=== PATIENT | female | born 1945 | race Caucasian/White ===

== ENCOUNTER 2018-11-19 10:00 | Day surgery (SDC) | payer MEDICARE, BC ==
[~2018-11-19 10:00] MED LIST: Lactated Ringers 1,000 ML IV SCH; Sodium Chloride 0.9% 10 ML Syringe FLUSH PRN
[2018-11-19] MEDS ORDERED: Lidocaine 2% 5 ML SDV ONE (11:37)
[2018-11-19] MEDS ORDERED: fentaNYL 100 MCG/2 ML SDV ONE (11:37)
[2018-11-19] MEDS ORDERED: Midazolam 1 MG/ML 2 ML SDV ONE (11:37)
[2018-11-19] MEDS ORDERED: Propofol 200 MG/20 ML SDV ONE (11:37)
--- NOTE | 2018-11-19 12:47 | PCM.PN ---
- General Info Date of Service: 11/19/18 - Review of Systems Systems Review Comment:: 73 y/o female referred for EGD because of post prandial epigastric pain. Some improvement with Zantac and Carafate. Her recent history and physical is reviewed and no significant changes are noted. I discussed the proposed upper endoscopy with the patient. She agrees to proceed accepting risks. Results of recent colonoscopy also reviewed with patient. - Patient Data Vitals - Most Recent: Last Vital Signs Temp 97.3 F 11/19/18 10:13 Pulse 81 11/19/18 10:13 Resp 16 11/19/18 10:13 BP 140/63 11/19/18 10:13 Pulse Ox 99 11/19/18 10:13 Weight - Most Recent: 60.872 kg Med Orders - Current: Current Medications Lactated Ringer's (Ringers, Lactated) 1,000 mls @ 50 mls/hr IV ASDIRECTED [facility] Last Admin: 11/19/18 10:43 Dose: 50 mls/hr Sodium Chloride (Saline Flush) 10 ml FLUSH Q8HR PRN PRN Reason: keep vein open Last Admin: 11/19/18 10:44 Dose: 10 ml Discontinued Medications Fentanyl (Sublimaze) Confirm Administered Dose 100 mcg .ROUTE .STK-MED ONE Stop: 11/19/18 11:38 Lactated Ringer's (Ringers, Lactated) 1,000 mls @ 50 mls/hr IV ASDIRECTED [facility] Lidocaine (Xylocaine-Mpf 2%) Confirm Administered Dose 5 ml .ROUTE .STK-MED ONE Stop: 11/19/18 11:38 Midazolam HCl (Versed 1 Mg/Ml) Confirm Administered Dose 2 mg .ROUTE .STK-MED ONE Stop: 11/19/18 11:38 Propofol (Diprivan 20 Ml) Confirm Administered Dose 200 mg .ROUTE .STK-MED ONE Stop: 11/19/18 11:38 - Problem List Review Problem List Initiated/Reviewed/Updated: Yes - My Orders Last 24 Hours: My Active Orders 11/19/18 09:00 Sodium Chloride 0.9% [Saline Flush] 10 ml FLUSH Q8HR PRN 11/19/18 10:00 Vital Signs [RC] PER UNIT ROUTINE Lactated Ringers [Ringers, Lactated] 1,000 ml IV ASDIRECTED Peripheral IV Insertion Adult [OM.PC] Routine 11/19/18 10:30 Patient to Empty Bladder [RC] ASDIRECTED 11/19/18 11:00 Verify Patient Consent Obtain [RC] ASDIRECTED 11/19/18 Breakfast Nothing Per Oral Diet [DIET] - Assessment Assessment:: Postprandial epigastric pain - Plan Plan:: EGD
[2018-11-19] MEDS ORDERED: Lidocaine 2% 100 MG/5 ML Syringe IVPUSH ONE (12:58)
[2018-11-19] MEDS ORDERED: fentaNYL 100 MCG/2 ML SDV IV ONE (12:58)
[2018-11-19] MEDS ORDERED: Midazolam 1 MG/ML 2 ML SDV IV ONE (12:58)
[2018-11-19] MEDS ORDERED: Propofol 200 MG/20 ML SDV IV ONE (12:58)
--- NOTE | 2018-11-19 13:36 | PCM.OPNOTE ---
- General Post-Op/Procedure Note Date of Surgery/Procedure: 11/19/18 Operative Procedure(s): EGD with Biopsy Findings: Normal appearing upper endoscopy except for appearance of scar in lower stomach Pre Op Diagnosis: Epigastric pain Post-Op Diagnosis: Normal upper endoscopy Anesthesia Technique: MAC Primary Surgeon: Lenny Alcazar Pathology: Biopsies of Gastric Antrum and Duodenum EBL in mLs: 3 Complications: None Condition: Good
[2018-11-19 14:16] VITALS: BP 130/59
--- NOTE | 2018-11-19 19:11 | OR ---
DATE OF SURGERY: 11/19/2018 SURGEON: Lenny Alcazar MD REFERRING PROVIDER: SHELBY Neal PREOPERATIVE DIAGNOSIS: Postprandial epigastric pain. POSTOPERATIVE DIAGNOSIS: Normal upper endoscopy. OPERATION PERFORMED: Esophagogastroduodenoscopy with biopsy. INDICATIONS FOR SURGERY: This 73-year-old female has a history of pain in the epigastrium which develops after eating. Etiology for this is unclear, and she is referred for diagnostic upper endoscopy. FINDINGS: No visible signs of inflammation or ulcers are seen on today's exam. The exam appears normal with the exception of the appearance of a scar in the lower part of the stomach. This does not show any indication of inflammation and it is not firm or abnormal. DESCRIPTION OF PROCEDURE: The patient was taken to the operating room, she was given intravenous sedation and her throat was topically anesthetized. The esophagus was intubated with the Olympus gastroscope, this was carefully advanced down through the esophagus, stomach, and into the duodenum where examination to the 2nd portion was performed. Because of the patient's symptoms, biopsies of the duodenum were taken. The scope was withdrawn back into the stomach where full examination including retroflexed examination of the fundus was performed. Biopsies of the antrum including biopsies in the area where the mucosa appeared to show some scarring, was carried out to rule out H. pylori. After full examination of the stomach was performed, the GE junction was carefully examined, and then the esophagus was re-examined as the scope was removed. The patient was then taken from the operating room in satisfactory condition. ESTIMATED BLOOD LOSS: 3 mL. COMPLICATIONS: None. PROGNOSIS: Good. /[id number]/MODL
== END 2018-11-19 14:55 | disposition home or self-care (01) ==
LOC: KA.SDS 10:00
PROVIDERS: ATTEND Surgery
DX: K29.50 Unspecified chronic gastritis without bleeding (principal); I10 Essential (primary) hypertension; F41.9 Anxiety disorder, unspecified; Z79.82 Long term (current) use of aspirin; J30.9 Allergic rhinitis, unspecified; Z79.899 Other long term (current) drug therapy; Z88.5 Allergy status to narcotic agent; Z88.2 Allergy status to sulfonamides
CPT/HCPCS: 00731; J2001; J2250; J2704; J3010; J7120

== ENCOUNTER 2020-12-28 07:58 | Day surgery (SDC) | payer MEDICARE, BC ==
[2020-12-28] MEDS ORDERED: Ondansetron 4 MG/2 ML SDV IV ONE (07:59)
[2020-12-28] MEDS ORDERED: Sodium Chloride 0.9% 10 ML Syringe FLUSH PRN (08:00)
[2020-12-28] MEDS: Lactated Ringers 1,000 ML IV SCH (08:41)
[2020-12-28] MEDS ORDERED: Glycopyrrolate 0.2 MG/ML SDV ONE (09:02)
[2020-12-28] MEDS ORDERED: Propofol 200 MG/20 ML SDV ONE (09:02)
[2020-12-28] MEDS ORDERED: Midazolam 1 MG/ML 2 ML SDV ONE (09:02)
[2020-12-28] MEDS ORDERED: Lidocaine 2% 5 ML SDV ONE (09:02)
--- NOTE | 2020-12-28 09:14 | PCM.PN ---
- General Info Date of Service: 12/28/20 - Review of Systems Systems Review Comment:: 75-year-old female with recent symptoms of nausea and epigastric pain along with changes in her bowel pattern referred for EGD. She is medically stable to proceed today. Her recent history and physical is reviewed and no significant changes are noted. I have discussed the proposed EGD with the patient. She agrees to proceed accepting risks. - Patient Data Vitals - Most Recent: Last Vital Signs Temp 97.5 F 12/28/20 08:10 Pulse 82 12/28/20 08:10 Resp 16 12/28/20 08:10 BP 142/71 H 12/28/20 08:10 Pulse Ox 95 12/28/20 08:10 Weight - Most Recent: 60.328 kg Med Orders - Current: Current Medications Lactated Ringer's (Ringers, Lactated) 1,000 mls @ 50 mls/hr IV ASDIRECTED [facility] Last Admin: 12/28/20 08:41 Dose: 50 mls/hr Documented by: Sodium Chloride (Saline Flush) 10 ml FLUSH Q8HR PRN PRN Reason: keep vein open Discontinued Medications Glycopyrrolate (Robinul) Confirm Administered Dose 0.2 mg .ROUTE .STK-MED ONE Stop: 12/28/20 09:03 Lidocaine (Xylocaine-Mpf 2%) Confirm Administered Dose 10 ml .ROUTE .STK-MED ONE Stop: 12/28/20 09:03 Midazolam HCl (Versed 1 Mg/Ml) Confirm Administered Dose 2 mg .ROUTE .STK-MED ONE Stop: 12/28/20 09:03 Propofol (Diprivan 20 Ml) Confirm Administered Dose 200 mg .ROUTE .STK-MED ONE Stop: 12/28/20 09:03 Sepsis Event Note - Focused Exam Vital Signs: Vital Signs Temp Pulse Resp BP Pulse Ox 12/28/20 08:10 97.5 F 82 16 142/71 H 95 - Problem List Review Problem List Initiated/Reviewed/Updated: Yes - My Orders Last 24 Hours: My Active Orders 12/28/20 07:11 Resuscitation Status Routine 12/28/20 08:00 Peripheral IV Care [RC] . DIRECTED Nothing Per Oral Diet [DIET] Lactated Ringers [Ringers, Lactated] 1,000 ml IV ASDIRECTED Sodium Chloride 0.9% [Saline Flush] 10 ml FLUSH Q8HR PRN Peripheral IV Insertion Adult [OM.PC] Routine 12/28/20 08:30 Patient to Empty Bladder [RC] ASDIRECTED 12/28/20 09:00 Verify Patient Consent Obtain [RC] ASDIRECTED - Assessment Assessment:: Abdominal pain Nausea - Plan Plan:: EGD
--- NOTE | 2020-12-28 09:47 | PCM.OPNOTE ---
- General Post-Op/Procedure Note Date of Surgery/Procedure: 12/28/20 Operative Procedure(s): EGD with biopsy Findings: Normal-appearing esophagus and duodenum Linear scar in greater curvature but without visible inflammation or ulcers Pre Op Diagnosis: Nausea. Upper Abdominal Pain Post-Op Diagnosis: Gastric Wall Scar Anesthesia Technique: MAC Primary Surgeon: Lenny Alcazar Pathology: Biopsies of Duodenum and Stomach EBL in mLs: 3 Complications: None Condition: Good
--- NOTE | 2020-12-28 10:43 | OR ---
DATE OF SURGERY: 12/28/2020 SURGEON: Lenny Alcazar MD PREOPERATIVE DIAGNOSIS: Nausea and upper abdominal pain. POSTOPERATIVE DIAGNOSIS: Gastric scar. OPERATION PERFORMED: Esophagogastroduodenoscopy with biopsy. INDICATIONS FOR SURGERY: This 75-year-old female has been having symptoms of nausea and upper abdominal pain as well as periods of profound constipation. She is referred for upper endoscopy. FINDINGS: No visible signs of acute inflammation or ulcers are seen. There is noted on the greater curvature near the posterior aspect of the gastric wall. A longitudinally oriented linear scar. The remainder of the gastric mucosa, duodenum, and esophagus all appeared normal. PROCEDURE: The patient was taken to the operating room. She was given intravenous sedation and with her in the left lateral decubitus position, the Olympus gastroscope was advanced through the mouth guard into the oral cavity. The scope was then carefully advanced through the oropharynx down through the esophagus, stomach, and into the duodenum where examination to the 4th portion is performed. Full examination of the duodenum was carried out with no abnormalities seen. Random biopsies of the duodenum were taken because of the patient's symptoms. The scope was withdrawn back into the stomach where full examination including retroflexed examination of the fundus was performed. Biopsies of the antrum and gastric body are taken randomly to rule out H pylori. Also targeted biopsies of the greater curvature where the scar is seen are also taken and submitted separately. After fully examining the stomach, the GE junction and esophagus are re-examined as the scope is withdrawn. The scope was removed and the patient was taken from the operating room in satisfactory condition. ESTIMATED BLOOD LOSS: 3 mL. COMPLICATIONS: None. PROGNOSIS: Good. /[id number]/MODL
[2020-12-28 12:18] VITALS: BP 137/59; PULSE 70
== END 2020-12-28 11:18 | disposition home or self-care (01) ==
LOC: KA.SDS 07:58
PROVIDERS: ATTEND Surgery
DX: K29.50 Unspecified chronic gastritis without bleeding (principal); K59.00 Constipation, unspecified; K31.89 Other diseases of stomach and duodenum; Z88.8 Allergy status to other drugs, medicaments and biological substances; Z88.5 Allergy status to narcotic agent; Z88.2 Allergy status to sulfonamides; Z79.82 Long term (current) use of aspirin; Z79.899 Other long term (current) drug therapy
CPT/HCPCS: 00731; 88305; 88342; J2250; J2405; J2704; J3490; J7120

== ENCOUNTER 2021-01-11 07:57 | Day surgery (SDC) | payer MEDICARE, BC ==
[2021-01-11] MEDS ORDERED: Sodium Chloride 0.9% 10 ML Syringe FLUSH PRN (08:00)
[2021-01-11] MEDS ORDERED: Lactated Ringers 1,000 ML IV SCH (08:00)
[2021-01-11] MEDS ORDERED: Midazolam 1 MG/ML 2 ML SDV ONE (09:02)
[2021-01-11] MEDS ORDERED: Propofol 200 MG/20 ML SDV ONE (09:02)
--- NOTE | 2021-01-11 09:11 | PCM.PN ---
- General Info Date of Service: 01/11/21 - Review of Systems Systems Review Comment:: 75-year-old female with change in bowel pattern over the last 6 months with increasing constipation here for colonoscopy. She is medically stable to proceed today. Her recent history and physical is reviewed and no significant changes are noted. Her last colonoscopy was about 3 years ago. I have discussed the proposed colonoscopy with the patient. She agrees to proceed accepting risks. - Patient Data Vitals - Most Recent: Last Vital Signs Temp 97.3 F 01/11/21 08:10 Pulse 79 01/11/21 08:10 Resp 16 01/11/21 08:10 BP 143/66 H 01/11/21 08:10 Pulse Ox 98 01/11/21 08:10 Weight - Most Recent: 58.513 kg Med Orders - Current: Current Medications Lactated Ringer's (Ringers, Lactated) 1,000 mls @ 50 mls/hr IV ASDIRECTED [facility] Last Admin: 01/11/21 08:23 Dose: 50 mls/hr Documented by: Sodium Chloride (Sodium Chloride 0.9% 10 Ml Syringe) 10 ml FLUSH Q8HR PRN PRN Reason: keep vein open Discontinued Medications Midazolam HCl (Midazolam 1 Mg/Ml 2 Ml Sdv) Confirm Administered Dose 2 mg .ROUTE .STK-MED ONE Stop: 01/11/21 09:03 Propofol (Propofol 200 Mg/20 Ml Sdv) Confirm Administered Dose 400 mg .ROUTE .STK-MED ONE Stop: 01/11/21 09:03 Sepsis Event Note - Focused Exam Vital Signs: Vital Signs Temp Pulse Resp BP Pulse Ox 01/11/21 08:10 97.3 F 79 16 143/66 H 98 - Problem List Review Problem List Initiated/Reviewed/Updated: Yes - My Orders Last 24 Hours: My Active Orders 01/10/21 13:34 Resuscitation Status Routine 01/11/21 08:00 Peripheral IV Care [RC] . DIRECTED Nothing Per Oral Diet [DIET] Lactated Ringers [Ringers, Lactated] 1,000 ml IV ASDIRECTED Sodium Chloride 0.9% [Saline Flush] 10 ml FLUSH Q8HR PRN Peripheral IV Insertion Adult [OM.PC] Routine 01/11/21 08:30 Patient to Empty Bladder [RC] ASDIRECTED 01/11/21 09:00 Verify Patient Consent Obtain [RC] ASDIRECTED - Assessment Assessment:: Change in bowel pattern - Plan Plan:: Colonoscopy
--- NOTE | 2021-01-11 09:39 | PCM.OPNOTE ---
- General Post-Op/Procedure Note Date of Surgery/Procedure: 01/11/21 Operative Procedure(s): Colonoscopy Findings: Moderate sigmoid diverticulosis without inflammation or stricture Pre Op Diagnosis: Change in bowel habits Post-Op Diagnosis: Sigmoid diverticulosis Anesthesia Technique: MAC Primary Surgeon: Lenny Alcazar Pathology: none EBL in mLs: 0 Complications: None Condition: Good
[2021-01-11 10:23] VITALS: PULSE 69
[2021-01-11 10:31] VITALS: BP 118/69
--- NOTE | 2021-01-11 11:37 | OR ---
DATE OF SURGERY: 01/11/2021 SURGEON: Lenny Alcazar MD PREOPERATIVE DIAGNOSIS: Change in bowel pattern. POSTOPERATIVE DIAGNOSIS: Sigmoid diverticulosis. OPERATION PERFORMED: Colonoscopy. INDICATIONS FOR SURGERY: This 75-year-old female has noticed a significant change in her bowel pattern with increasing constipation over the last six months. She is referred for colonoscopy. FINDINGS: No strictures or narrow areas are identified during the exam. The patient does have a moderate amount of diverticulosis in the sigmoid region. This area does not appear to be acutely inflamed or otherwise complicated. The remainder of the colon appears normal. DESCRIPTION OF PROCEDURE: The patient was taken to the operating room. She was given intravenous sedation and with her in the left lateral decubitus position, digital rectal exam was performed showing no rectal masses. The Olympus colonoscope was inserted into the rectum. Retroflexed examination of the rectal canal is performed. The scope was then carefully advanced under direct visualization through the entire length of the colon until the cecum is reached. This colon was somewhat tortuous and the assistance of hand pressure was required, but eventually the cecum was able to be safely accessed and carefully examined. The ileocecal valve was identified confirming the cecal anatomy. After examining the cecum, the scope was slowly withdrawn sequentially re- examining the colonic segments until the entire colon and rectum have been fully examined. The scope was removed and the patient was taken from the operating room in satisfactory condition. ESTIMATED BLOOD LOSS: Zero. COMPLICATIONS: None. PROGNOSIS: Good. /[id number]/MODL
== END 2021-01-11 10:44 | disposition home or self-care (01) ==
LOC: KA.SDS 07:57
PROVIDERS: ATTEND Surgery
DX: K57.30 Diverticulosis of large intestine without perforation or abscess without bleeding (principal); K59.00 Constipation, unspecified; G47.00 Insomnia, unspecified; Z88.2 Allergy status to sulfonamides; Z88.8 Allergy status to other drugs, medicaments and biological substances; Z79.82 Long term (current) use of aspirin; Z79.899 Other long term (current) drug therapy; Z98.890 Other specified postprocedural states
CPT/HCPCS: 00811; J2250; J2704; J7120

== ENCOUNTER 2023-02-20 08:35 | Day surgery (SDC) | payer MEDICARE, BC ==
[2023-02-20] MEDS ORDERED: Lactated Ringers 1,000 ML IV SCH (09:00)
[2023-02-20] MEDS ORDERED: Sodium Chloride 0.9% 10 ML Syringe FLUSH PRN (09:00)
[2023-02-20] MEDS ORDERED: Midazolam 1 MG/ML 2 ML SDV ONE (09:47)
[2023-02-20] MEDS ORDERED: Propofol 200 MG/20 ML SDV ONE (09:47)
[2023-02-20] MEDS ORDERED: Lidocaine 2% 5 ML SDV ONE (09:48)
[2023-02-20] MEDS ORDERED: Glycopyrrolate 0.2 MG/ML SDV ONE (09:48)
[2023-02-20 12:31] VITALS: BP 162/71; PULSE 82
== END 2023-02-20 12:00 | disposition home or self-care (01) ==
LOC: KA.SDS 08:35
PROVIDERS: ATTEND Surgery
DX: K29.50 Unspecified chronic gastritis without bleeding (principal); K31.A0 Gastric intestinal metaplasia, unspecified; K21.00 Gastro-esophageal reflux disease with esophagitis, without bleeding; K57.30 Diverticulosis of large intestine without perforation or abscess without bleeding; K59.04 Chronic idiopathic constipation; K25.7 Chronic gastric ulcer without hemorrhage or perforation; F32.A Depression, unspecified; M79.7 Fibromyalgia; I10 Essential (primary) hypertension; I49.1 Atrial premature depolarization; I67.1 Cerebral aneurysm, nonruptured; R42 Dizziness and giddiness; R06.00 Dyspnea, unspecified; M15.9 Polyosteoarthritis, unspecified; J30.2 Other seasonal allergic rhinitis; R53.82 Chronic fatigue, unspecified; Z98.890 Other specified postprocedural states; Z88.2 Allergy status to sulfonamides; Z88.5 Allergy status to narcotic agent; Z88.8 Allergy status to other drugs, medicaments and biological substances
CPT/HCPCS: 00813; J2250; J2704; J3490; J7120

== ENCOUNTER 2023-12-12 14:04 | Emergency (ER) | payer MEDICARE, BC ==
[2023-12-12 15:04] LABS: BASOPHILS ABSOLUTE AUTO 0.02 10^3/uL (0.00-0.10); BASOPHILS PERCENT AUTO 0.2 % (0.0-1.0); EOSINOPHILS ABSOLUTE AUTO 0.05 10^3/uL (0.10-0.30); EOSINOPHILS PERCENT AUTO 0.5 % (1.0-3.0); HEMATOCRIT 41.8 % (37.0-47.0); HEMOGLOBIN 13.5 g/dL (12.0-16.0); IMMATURE GRAN ABSOLUTE AUTO 0.03 10^3/uL (0.00-0.50); IMMATURE GRAN PERCENT AUTO 0.3 % (0.0-5.0); LYMPHOCYTES ABSOLUTE AUTO 1.58 10^3/uL (1.00-4.00); MEAN CORPUSCULAR HEMOGLOBIN 31.8 pg (27.0-31.0); MEAN CORPUSCULAR HGB CONC 32.3 g/dL (32.0-36.0); MEAN CORPUSCULAR VOLUME 98.4 fL (82.0-92.0); MEAN PLATELET VOLUME 8.6 fL (7.4-10.4); MONOCYTES ABSOLUTE AUTO 0.65 10^3/uL (0.10-0.80); MONOCYTES PERCENT AUTO 6.6 % (2.0-8.0); NEUTROPHILS ABSOLUTE AUTO 7.55 10^3/uL (2.50-7.00); NEUTROPHILS PERCENT AUTO 76.4 % (50.0-70.0); PLATELET COUNT,PLT 258 10^3/uL (150-400); RED BLOOD CELL COUNT 4.25 10^6/uL (3.80-5.50); WHITE BLOOD CELL COUNT,WBC 9.88 10^3/uL (5.00-10.00)
[2023-12-12 15:12] LABS: APPEARANCE,URINE CLEAR (CLEAR); BILIRUBIN,URINE NEGATIVE (NEGATIVE); COLOR,URINE YELLOW (YELLOW); GLUCOSE,URINE NEGATIVE (NEGATIVE); KETONES,URINE NEGATIVE (NEGATIVE); LEUKOCYTE ESTERASE,URINE NEGATIVE (NEGATIVE); NITRITE,URINE NEGATIVE (NEGATIVE); OCCULT BLOOD,URINE NEGATIVE (NEGATIVE); PH,URINE 6.5 (5.0-9.0); PROTEIN,URINE NEGATIVE (NEGATIVE); UROBILINOGEN,URINE 0.2 E.U./dL (0.2-1.0)
[2023-12-12 15:21] LABS: ALBUMIN 3.28 g/dL (3.40-5.00); ANION GAP 10.7 mmol/L (5-15); BILIRUBIN TOTAL 0.6 mg/dL (0.2-1.0); CALCIUM 8.6 mg/dL (8.7-10.3); CARBON DIOXIDE,CO2 30.3 mmol/L (21.0-32.0); CREATININE 1.03 mg/dL (0.51-1.17); EST CRCL DRUG DOSING (CG) 36.64 mL/min; PROTEIN TOTAL,TP 6.1 g/dL (6.4-8.2)
[2023-12-12 18:02] VITALS: BP 149/65; PULSE 70
== END 2023-12-12 16:12 | disposition home or self-care (01) ==
LOC: KA.ED 14:04
DX: I10 Essential (primary) hypertension (principal); F43.9 Reaction to severe stress, unspecified; K21.9 Gastro-esophageal reflux disease without esophagitis; Z88.2 Allergy status to sulfonamides; Z88.8 Allergy status to other drugs, medicaments and biological substances; Z79.899 Other long term (current) drug therapy; Z90.49 Acquired absence of other specified parts of digestive tract; Z90.710 Acquired absence of both cervix and uterus
CPT/HCPCS: 36415; 80053; 81003; 83880; 84484; 85025; 99283

== ENCOUNTER 2024-05-03 11:45 | Inpatient (IN) | payer MEDICARE, BC ==
[2024-05-03] MEDS: Sodium Chloride 0.9% 1,000 ML IV ONE (12:18)
[2024-05-03] MEDS: Sodium Chloride 0.9% 1,000 ML ONE (12:19)
[2024-05-03 12:25] LABS: BASOPHILS ABSOLUTE AUTO 0.02 10^3/uL (0.00-0.10); BASOPHILS PERCENT AUTO 0.3 % (0.0-1.0); EOSINOPHILS PERCENT AUTO 6.6 % (1.0-3.0); HEMATOCRIT 38.4 % (37.0-47.0); HEMOGLOBIN 12.7 g/dL (12.0-16.0); LYMPHOCYTES ABSOLUTE AUTO 1.24 10^3/uL (1.00-4.00); LYMPHOCYTES PERCENT AUTO 16.4 % (20.0-40.0); MEAN CORPUSCULAR HEMOGLOBIN 32.6 pg (27.0-31.0); MEAN CORPUSCULAR HGB CONC 33.1 g/dL (32.0-36.0); MEAN CORPUSCULAR VOLUME 98.7 fL (82.0-92.0); MEAN PLATELET VOLUME 8.9 fL (7.4-10.4); MONOCYTES ABSOLUTE AUTO 0.55 10^3/uL (0.10-0.80); MONOCYTES PERCENT AUTO 7.3 % (2.0-8.0); NEUTROPHILS ABSOLUTE AUTO 5.24 10^3/uL (2.50-7.00); NEUTROPHILS PERCENT AUTO 69.4 % (50.0-70.0); PLATELET COUNT,PLT 275 10^3/uL (150-400); RED BLOOD CELL COUNT 3.89 10^6/uL (3.80-5.50); RED CELL DISTRIBUTION WIDTH 13.6 % (11.5-14.5); WHITE BLOOD CELL COUNT,WBC 7.55 10^3/uL (5.00-10.00)
[2024-05-03 12:29] LABS: APPEARANCE,URINE SLIGHTLY CLOUDY (CLEAR); BILIRUBIN,URINE NEGATIVE (NEGATIVE); COLOR,URINE LIGHT YELLOW (YELLOW); GLUCOSE,URINE NEGATIVE (NEGATIVE); KETONES,URINE NEGATIVE (NEGATIVE); LEUKOCYTE ESTERASE,URINE TRACE (NEGATIVE); NITRITE,URINE NEGATIVE (NEGATIVE); OCCULT BLOOD,URINE TRACE-INTACT (NEGATIVE); PROTEIN,URINE NEGATIVE (NEGATIVE); UROBILINOGEN,URINE 0.2 E.U./dL (0.2-1.0)
[2024-05-03 12:34] LABS: ALBUMIN 2.46 g/dL (3.40-5.00); ANION GAP 9.9 mmol/L (5-15); BILIRUBIN TOTAL 0.6 mg/dL (0.2-1.0); CALCIUM 9.2 mg/dL (8.7-10.3); CARBON DIOXIDE,CO2 32.4 mmol/L (21.0-32.0); CREATININE 0.8 mg/dL (0.51-1.17); EST CRCL DRUG DOSING (CG) 46.4 mL/min; POTASSIUM,K 4.3 mmol/L (3.5-5.1); PROTEIN TOTAL,TP 6.2 g/dL (6.4-8.2)
[2024-05-03] MEDS: Ondansetron 4 MG/2 ML SDV IVPUSH ONE (12:36)
[2024-05-03 12:43] LABS: BACTERIA,URINE RARE /HPF (NONE TO FEW); EPITHELIAL CELLS,URINE MODERATE /LPF; MUCUS,URINE RARE /LPF (NEGATIVE); RBC,URINE 0-5 /HPF (0-5); WBC,URINE 0-5 /HPF (0-5)
[2024-05-03] MEDS: Ondansetron 4 MG/2 ML SDV ONE (13:23)
[2024-05-03] MEDS: Acetaminophen 500 MG Tab PO ONE (14:38)
[2024-05-03] MEDS ORDERED: Non-Formulary Medication 1 Each (Ipratropium [Atrovent 0.06% Nasal Spray] 15 ML Bottle) NASBOTH PRN (15:05)
[2024-05-03] MEDS ORDERED: PHENAZOPYRIDINE 200 MG PO PRN (15:05)
[2024-05-03] MEDS ORDERED: OXYCODONE HCL 5 MG PO PRN (15:05)
[2024-05-03] MEDS: Enoxaparin 40 MG/0.4 ML Syringe SUBCUT SCH (16:19)
[2024-05-03] MEDS: Famotidine 20 MG Tab PO SCH (19:05)
[2024-05-03] MEDS ORDERED: NITROFURANTOIN MACROCRYSTAL 100 MG PO SCH (21:00)
[2024-05-03] MEDS: Cholecalciferol (Vitamin D3) 25 MCG Tab PO SCH (21:22)
[2024-05-03] MEDS: Nitrofurantoin Monohydrate/Macrocrystalline 100 MG Cap PO SCH (21:22)
[2024-05-03] MEDS: AMITRIPTYLINE 10 MG PO SCH (21:22)
[2024-05-03] MEDS: traZODone 50 MG Tab PO SCH (21:22)
[2024-05-03] MEDS: traMADol 50 MG Tab PO PRN (21:23)
[2024-05-03] MEDS: Aluminum Hydroxide/Magnesium Hydroxide/Simethicone Susp 30 ML Cup PO PRN (21:36)
[2024-05-04] MEDS: Acetaminophen 325 MG Tab PO PRN (02:48)
[2024-05-04] MEDS: Pantoprazole 40 MG Tab.CR PO SCH (06:21)
[2024-05-04 07:05] LABS: BASOPHILS ABSOLUTE AUTO 0.01 10^3/uL (0.00-0.10); BASOPHILS PERCENT AUTO 0.2 % (0.0-1.0); EOSINOPHILS PERCENT AUTO 10.1 % (1.0-3.0); HEMATOCRIT 36.3 % (37.0-47.0); HEMOGLOBIN 11.6 g/dL (12.0-16.0); LYMPHOCYTES ABSOLUTE AUTO 1.21 10^3/uL (1.00-4.00); LYMPHOCYTES PERCENT AUTO 20.3 % (20.0-40.0); MEAN PLATELET VOLUME 8.6 fL (7.4-10.4); MONOCYTES ABSOLUTE AUTO 0.44 10^3/uL (0.10-0.80); MONOCYTES PERCENT AUTO 7.4 % (2.0-8.0); PLATELET COUNT,PLT 252 10^3/uL (150-400); RED BLOOD CELL COUNT 3.63 10^6/uL (3.80-5.50); RED CELL DISTRIBUTION WIDTH 13.6 % (11.5-14.5); WHITE BLOOD CELL COUNT,WBC 5.96 10^3/uL (5.00-10.00)
[2024-05-04 07:24] LABS: ALBUMIN 2.28 g/dL (3.40-5.00); ANION GAP 8.7 mmol/L (5-15); BILIRUBIN TOTAL 0.6 mg/dL (0.2-1.0); CALCIUM 8.8 mg/dL (8.7-10.3); CARBON DIOXIDE,CO2 32.6 mmol/L (21.0-32.0); CREATININE 0.85 mg/dL (0.51-1.17); EST CRCL DRUG DOSING (CG) 43.67 mL/min; MAGNESIUM 1.8 mg/dL (1.8-2.4); POTASSIUM,K 4.3 mmol/L (3.5-5.1); PROTEIN TOTAL,TP 5.9 g/dL (6.4-8.2)
[2024-05-04] MEDS: Venlafaxine 37.5 MG Cap.ER PO SCH (08:41)
[2024-05-04] MEDS: Magnesium Oxide 500 MG Tab PO SCH (08:41)
[2024-05-04] MEDS: Ascorbic Acid 500 MG Tab PO SCH (08:41)
[2024-05-04] MEDS: Metoprolol Succinate 25 MG Tab.ER PO SCH (08:41)
[2024-05-04] MEDS: Aspirin 81 MG Tab.EC PO SCH (08:41)
[2024-05-04] MEDS: Estradiol 0.01% Vaginal Crm 42.5 GM Tube VAG SCH ×2 (08:43→21:21)
[2024-05-04] MEDS: Polyethylene Glycol 3350 Powder 17 GM Packet PO SCH ×2 (08:44→22:30)
[2024-05-04] MEDS: traMADol 50 MG Tab PO PRN (11:51)
[2024-05-04] MEDS: Famotidine 20 MG Tab PO SCH (17:15)
[2024-05-04] MEDS: Polyethylene Glycol 3350 Powder 17 GM Packet PO PRN (21:57)
[2024-05-05] MEDS: Enoxaparin 40 MG/0.4 ML Syringe SUBCUT SCH (17:41)
[2024-05-06] MEDS: Acetaminophen 650 MG Tab.ER PO PRN (08:30)
[2024-05-06] MEDS: FIBER PO SCH (10:20)
[2024-05-06] MEDS: Melatonin 3 MG Tab PO PRN (20:38)
[2024-05-07] MEDS ORDERED: Loperamide 2 MG Cap PO PRN (14:26)
[2024-05-07] MEDS: Ciprofloxacin 500 MG Tab PO SCH (16:25)
[2024-05-07] MEDS: Ondansetron 4 MG Tab.DIS PO PRN (16:27)
[2024-05-07] MEDS: FIBER PO SCH (20:52)
[2024-05-07] MEDS ORDERED: Non-Formulary Medication 1 Each PO SCH (21:00)
[2024-05-08] MEDS: Diclofenac Sodium 1% Gel 100 GM Tube TOP PRN (20:24)
[2024-05-09 09:12] LABS: BASOPHILS ABSOLUTE AUTO 0.03 10^3/uL (0.00-0.10); BASOPHILS PERCENT AUTO 0.6 % (0.0-1.0); EOSINOPHILS PERCENT AUTO 8.6 % (1.0-3.0); HEMOGLOBIN 11.8 g/dL (12.0-16.0); IMMATURE GRAN ABSOLUTE AUTO 0.01 10^3/uL (0.00-0.50); IMMATURE GRAN PERCENT AUTO 0.2 % (0.0-5.0); LYMPHOCYTES ABSOLUTE AUTO 1.33 10^3/uL (1.00-4.00); LYMPHOCYTES PERCENT AUTO 28.5 % (20.0-40.0); MEAN CORPUSCULAR HEMOGLOBIN 32.2 pg (27.0-31.0); MEAN CORPUSCULAR HGB CONC 31.9 g/dL (32.0-36.0); MEAN CORPUSCULAR VOLUME 101.1 fL (82.0-92.0); MEAN PLATELET VOLUME 8.2 fL (7.4-10.4); MONOCYTES ABSOLUTE AUTO 0.37 10^3/uL (0.10-0.80); MONOCYTES PERCENT AUTO 7.9 % (2.0-8.0); NEUTROPHILS ABSOLUTE AUTO 2.52 10^3/uL (2.50-7.00); NEUTROPHILS PERCENT AUTO 54.2 % (50.0-70.0); PLATELET COUNT,PLT 372 10^3/uL (150-400); RED BLOOD CELL COUNT 3.66 10^6/uL (3.80-5.50); RED CELL DISTRIBUTION WIDTH 13.8 % (11.5-14.5); WHITE BLOOD CELL COUNT,WBC 4.66 10^3/uL (5.00-10.00)
[2024-05-09 09:27] LABS: ANION GAP 7.4 mmol/L (5-15); CALCIUM 9.2 mg/dL (8.7-10.3); CARBON DIOXIDE,CO2 35.6 mmol/L (21.0-32.0); CREATININE 0.94 mg/dL (0.51-1.17); EST CRCL DRUG DOSING (CG) 39.49 mL/min; MAGNESIUM 1.8 mg/dL (1.8-2.4)
[2024-05-09] MEDS: Docusate Sodium 100 MG Cap PO PRN (10:08)
[2024-05-09] MEDS: Magnesium Hydroxide 400 MG/5 ML Susp 30 ML Cup PO PRN (15:49)
[2024-05-11] MEDS: Simethicone 80 MG Tab.Chew PO PRN (12:15)
[2024-05-11] MEDS: ATROVENT 0.06% NASBOTH PRN (20:56)
[2024-05-12 08:32] VITALS: PULSE 78
[2024-05-12 08:45] VITALS: BP 112/48
== END 2024-07-13 12:11 | disposition home or self-care (01) | DRG 561 ==
LOC: KA.ED 11:45 → KA.MS 14:06 → UNDOADMIN 14:06 → KA.MS 14:59 → UNDODISIN 05-12 12:11
PROVIDERS: ADMIT Physician Assistant Surgical; ATTEND Internal Medicine
DX: Z47.1 Aftercare following joint replacement surgery (principal); R53.81 Other malaise; Z66 Do not resuscitate; M54.2 Cervicalgia; G89.29 Other chronic pain; M79.7 Fibromyalgia; M19.90 Unspecified osteoarthritis, unspecified site; F41.9 Anxiety disorder, unspecified; F32.A Depression, unspecified; R09.02 Hypoxemia; Z96.612 Presence of left artificial shoulder joint; R11.2 Nausea with vomiting, unspecified; K59.00 Constipation, unspecified; I10 Essential (primary) hypertension; K21.9 Gastro-esophageal reflux disease without esophagitis; Z88.5 Allergy status to narcotic agent; Z88.8 Allergy status to other drugs, medicaments and biological substances; Z88.2 Allergy status to sulfonamides; Z98.890 Other specified postprocedural states; Z79.899 Other long term (current) drug therapy; Z79.82 Long term (current) use of aspirin; Z90.49 Acquired absence of other specified parts of digestive tract; Z90.710 Acquired absence of both cervix and uterus
CPT/HCPCS: 36415; 71045; 71046; 74018; 80048; 80053; 81001; 83735; 83880; 85025; 87086; 87088; 87186; 96361; 96372; 96374; 97110-GP; 97116-GP; 97161-GP; 99284; 99285-25; 99306-GT; 99307-GT; 99316-GT; A9270-GY; J1650; J2405; J7030; Q3014